=== PATIENT | female | born 1995 ===

== ENCOUNTER → 2018-12-08 | Outpatient (CLI) | payer SELFPAY ==
[2018-12-08 11:35] LABS: BACTERIA (WET MOUNT) 4+ BACTERIA SEEN; EPITHELIALS (WET MOUNT) 4+ EPITHELIALS SEEN; T.VAGINALIS (WET MOUNT) NO TRICHOMONAS SEEN; WBCS (WET MOUNT) 1+ WBCS SEEN; YEAST (WET MOUNT) YEAST SEEN
[2018-12-08 13:03] LABS: CHLAM PCR NOT DETECTED (NOT DETECT)
== END ==
LOC: LAB 11:22
PROVIDERS: ATTEND Nurse Practitioner Acute Care
DX: N89.8 Other specified noninflammatory disorders of vagina (principal)
CPT/HCPCS: 87210; 87491; 87591